=== PATIENT | male | born 1985 | race Caucasian/White ===

== ENCOUNTER 2019-06-03 21:47 | Emergency (ER) | payer OTHER ==
[~2019-06-03] VITALS: Ht 172.7 cm; Wt 73.0 kg
[2019-06-03] MEDS ORDERED: IBUPROFEN 600MG TABLET PO ONE (22:45)
[2019-06-03 22:53] VITALS: BP 132/76
== END 2019-06-03 23:01 | disposition home or self-care (01) ==
LOC: ER 21:47
DX: G89.29 Other chronic pain (principal); M54.9 Dorsalgia, unspecified
CPT/HCPCS: 99283